=== PATIENT | female | born 1995 | race Caucasian/White ===

== ENCOUNTER 2018-04-03 17:06 | Inpatient (IN) | payer MEDICAID ==
[~2018-04-03] VITALS: Ht 152.4 cm; Wt 45.4 kg
--- NOTE | 2018-04-03 17:30 | NUR ---
PT A/O X 0. OBTUNDED. NEG ACUTE DISTRESS. VSS. PT ON TRACH. NEG SOB. C/C OF TRACH REPLACEMENT. SAFETY MEASURES IN PLACE.
--- NOTE | 2018-04-03 17:50 | NUR ---
CENTRAL SERVICE SUPPLY DISTRIBUTOR YAHAIRA AT BS.
[2018-04-03 17:54] VITALS: BP 139/113
--- NOTE | 2018-04-03 17:57 | NUR ---
RT NOTE RECEIVED PT BEING BAGGED BY PARAMEDICS. PT PLACED ON VENT PER MD ORDER. SETTINGS ENDORSED BY PARAMEDICS AC 14 380 +8. PT INITIALLY PLACED ON 100% WILL TITRATE ACCORDINGLY. PT HAS SHILEY 6 DCT CUFFED TRACHEOSTOMY TUBE. CUFF INFLATED. PT RESPONDS TO STIMULI. LARGE AMOUNT OF FROTHY WHITE SECRETIONS FOUND UPON TRACHEAL SUCTION. ALARMS SET PER PROTOCOL AND AUDIBLE. VENT PLUGGED IN TO RED OUTLET. AMBU BAG AT BED SIDE. NO DISTRESS NOTED AT MOMENT. WILL CONTINUE TO MONITOR. Addendum: 04/03/18 at 1802 by ESPERANZA SHEN RT Amended: Links added.
[2018-04-03] MEDS ORDERED: MINE3.5O26 EACHEYE (18:18)
[2018-04-03] MEDS ORDERED: MONT10TA22 GT (18:18)
[2018-04-03] MEDS ORDERED: ALBU2.5V38 IH (18:18)
[2018-04-03] MEDS ORDERED: LEVE100S GT (18:18)
[2018-04-03] MEDS ORDERED: METO25TA20 GT (18:18)
[2018-04-03] MEDS ORDERED: ACET100V5 NEB (18:18)
[2018-04-03] MEDS ORDERED: NEO/5DRO3 EACHEYE (18:18)
[2018-04-03] MEDS ORDERED: FAMO40TA7 GT (18:18)
[2018-04-03] MEDS ORDERED: CHOL400T11 GT (18:18)
[2018-04-03] MEDS ORDERED: ACID1TAB12 GT (18:18)
[2018-04-03] MEDS ORDERED: NORG1TAB19 GT (18:18)
[2018-04-03] MEDS ORDERED: CHLO473M5 MM (18:18)
[2018-04-03] MEDS ORDERED: PRED20TA GT (18:18)
[2018-04-03] MEDS ORDERED: LORA0.5T SL (18:18)
[2018-04-03] MEDS ORDERED: SODI100010 GT ×2 (18:18)
[2018-04-03] MEDS ORDERED: POLY17PO4 GT (18:18)
[2018-04-03] MEDS ORDERED: PHEN125O3 GT (18:18)
[2018-04-03] MEDS ORDERED: ACET650S26 GT (18:18)
--- NOTE | 2018-04-03 19:26 | NUR ---
PT STABLE CONDITION. ENDORSED TO PLANISHER.
--- NOTE | 2018-04-03 20:07 | NUR ---
SPOKE WITH JOANNA, THE DON AT [facility]. SHES SAID THEY WILL BE READY WITH RT AND VENT AT THE FACILITY AT 1030A TOMORROW TO ACCEPT PATIENT. CALL BACK NUMBER FOR JOANNA IS [phone] ADRESS FOR FACILTY [address], [facility]
[2018-04-03 21:08] VITALS: BP 114/81
--- NOTE | 2018-04-03 21:25 | NUR ---
CALLED [facility] TO TRANSPORT PT TO [facility] TOMORROW MORNING AT 930 AM, TRIP #[id number]
--- NOTE | 2018-04-03 22:03 | NUR ---
PT ASLEEP, NO ACUTE DISTRESS NOTED, RESP EVEN AND UNLABORED. CALL LIGHT WITHIN REACH.
[2018-04-03 23:42] VITALS: BP 117/85
[2018-04-04] VITALS (8 sets, daily range): BP systolic 122–156; BP diastolic 72–102
--- NOTE | 2018-04-04 01:32 | NUR ---
PT ASLEEP, NO ACUTE DISTRESS NOTED, RESP EVEN AND UNLABORED. CALL LIGHT WITHIN REACH.
--- NOTE | 2018-04-04 02:00 | NUR ---
PT ASLEEP, NO ACUTE DISTRESS NOTED, RESP EVEN AND UNLABORED. CALL LIGHT WITHIN REACH.
--- NOTE | 2018-04-04 04:56 | NUR ---
PT ASLEEP, NO ACUTE DISTRESS NOTED, RESP EVEN AND UNLABORED. CALL LIGHT WITHIN REACH.
--- NOTE | 2018-04-04 06:09 | NUR ---
REPORT GIVEN TO YOAN COLLINS.
[2018-04-04] MEDS ORDERED: NUT.237L65 GT (08:19)
--- NOTE | 2018-04-04 08:27 | NUR ---
CALLED LAB AND SPOKE WITH RADHA, PHOTO MASK CLEANER FOR BLOOD DRAW.
[2018-04-04] MEDS ORDERED: IV NS 0.9% 1,000 ML BAG IV ONE (08:30)
--- NOTE | 2018-04-04 08:30 | NUR ---
CHAIR SPRING ASSEMBLER AT BEDSIDE.
[2018-04-04 09:01] LABS: BASOPHILS % (AUTO) 0.1 % (0.0-2.0); EOSINOPHILS % (AUTO) 0.5 % (0.0-6.0); HEMATOCRIT 39 % (33-45); HEMOGLOBIN 13.2 g/dL (11.5-14.8); LYMPHOCYTES # (AUTO) 1.5 /CMM (0.8-4.8); LYMPHOCYTES % (AUTO) 9.5 % (20.0-44.0); MEAN CORPUSCULAR HEMOGLOBIN 29 PG (26.0-33.0); MEAN CORPUSCULAR HGB CONC 34 g/dl (31.0-36.0); MEAN CORPUSCULAR VOLUME 86 fL (82-100); NEUTROPHILS # (AUTO) 13.5 /CMM (1.8-8.9); NEUTROPHILS % (AUTO) 83.9 % (43.0-81.0); PLATELET COUNT (AUTO) 361 /CMM (150-450); RDW COEFFICIENT OF VARIATION 14.1 (11.5-15.0); RED BLOOD CELL COUNT(AUTO) 4.54 MIL/uL (4.0-5.2); WHITE BLOOD COUNT (AUTO) 16.1 K/uL (4.3-11.0)
[2018-04-04 09:10] LABS: CALCIUM, SERUM 9.2 mg/dL (8.5-10.1); CARBON DIOXIDE 20 mmol/L (21-32); CHLORIDE 91 mmol/L (98-107); CREATININE 0.3 mg/dL (0.6-1.3); GLUCOSE 106 mg/dL (74-106); POTASSIUM 3.9 mmol/L (3.5-5.1); SODIUM SERUM 127 mmol/L (136-145); UREA NITROGEN, BLOOD 14 mg/dL (7-18)
[2018-04-04 09:15] LABS: INR 1.05 (0.87-1.13)
[2018-04-04 09:34] LABS: TROPONIN I < 0.017 ng/mL (0.00-0.056)
--- NOTE | 2018-04-04 09:40 | NUR ---
RD ON-CALL FOR TODAY MADE AWARE RE: GT FEEDING CONSULT.
[2018-04-04] MEDS ORDERED: LORAZEPAM INJ 2 MG/ML VIAL ONE (09:55)
[2018-04-04] MEDS ORDERED: LORAZEPAM INJ 2 MG/ML VIAL IV ONE (10:00)
--- NOTE | 2018-04-04 10:34 | NUR ---
REPORT GIVEN TO HENRIETTA FOR OMKAR GOING TO ROOM 103
--- NOTE | 2018-04-04 10:35 | NUR ---
RN NOTES RECEIVED REPORT FROM IONA ESPITIA
--- NOTE | 2018-04-04 10:45 | NUR ---
TELE/RN ADMITTING NOTES RECEIVED PT FROM ER VIA JENNA, ACCOMPANIED BY 2 ER NURSE AND RT. PT WITH TRACH, ONGOING AMBUBAG. PT IS OBTUNDED, NO SIGNS OF PAIN. PLACED ON TELEMONITOR SINUS TACHY @ 120S. WITH INTACT AND PATENT SL ON LFA G#20. WITH DRY AND INTACT TRACH, SHILEY:6. RT PLACED MECH VENT ON THE FF SETTINGS: AC:14; TV:380; FIO2:40% AND PEEP:8. PT TOLERATING VENT SETTINGS WELL. GT CLAMPED AND INTACT. PT'S FATHER AT BEDSIDE. SAFETY MEASURES OBSERVED. ASPIRATION PRECAUTION MAINTAINED. CALL LIGHT WITHIN REACH. WILL CONT TO MONITOR
[2018-04-04] MEDS ORDERED: MAGNESIUM HYDROXIDE 30 ML UDC PO PRN (11:00)
[2018-04-04] MEDS ORDERED: ACETAMINOPHEN 325 MG TABLET PO PRN (11:00)
[2018-04-04] MEDS ORDERED: MAG HYDROX/AL HYDROX/SIMETH 30 ML UDC PO PRN (11:00)
[2018-04-04] MEDS ORDERED: LORAZEPAM 1 MG TABLET PO PRN (11:00)
[2018-04-04] MEDS ORDERED: HYDROCODONE/APAP 5/325MG 1 EACH TABLET PO PRN (11:00)
[2018-04-04] MEDS ORDERED: Z GUARD REMEDY 2 OZ OINT TP PRN (11:00)
[2018-04-04] MEDS ORDERED: ZOLPIDEM TARTRATE 5 MG TABLET PO PRN (11:00)
[2018-04-04] MEDS ORDERED: ONDANSETRON HCL/PF 4 MG/2 ML VIAL IVP PRN (11:00)
--- NOTE | 2018-04-04 11:03 | NUR ---
PT. TRANSFERRED FROM ER TO ROOM 103 WITH SAME MECH VENT. MECH VENT PLUGGED INTO RED OUTLET WITH ALARMS ON AND FUNCTIONING. SAI @ BEDSIDE. Addendum: 04/04/18 at 1106 by JULES TORRES RT Amended: Links added.
[2018-04-04] MEDS: IV NS 0.9% 1,000 ML IV PRN ×2 (13:18→23:46)
--- NOTE | 2018-04-04 14:35 | NUR ---
RN NOTES PICC LINE NURSEOSWALDO ON FLOOR, ASSISTED IN PROCEDURE. STERILE TECHNIQUE OBSERVED. WILL CONT TO MONITOR
--- NOTE | 2018-04-04 16:20 | NUR ---
YOAN NOTES WHILE PROVIDING INCONTINENT CARE WITH PT, PT ON SINUS TACH AROUND 150S ON TELEMONITOR, NOTIFIED DR ELLINGTON AWAITING FOR ORDER Addendum: 04/04/18 at 2049 by KEVIN WALSH RN NOTES FOR 1819
[2018-04-04] MEDS ORDERED: VITAL AF 1.2 1,000 ML BOTTLE GT PRN (16:30)
--- NOTE | 2018-04-04 16:45 | NUR ---
RN NOTES PICC LINE INSERTION UNSUCCESSFUL, PRESSURE DRESSING APPLIED ON PUNCTURE SITE WITH NO SIGNS OF BLEEDING. WILL CONT TO MONITOR
--- NOTE | 2018-04-04 17:20 | NUR ---
RN NOTES PT WAS SEEN AND EXAMINED BY DR ELLINGTON, FATHER AT BEDSIDE. ALL CONCERNS WERE ANSWERED BY MD. NOTIFIED MD RE: THE UNSUCCESSFUL INSERTION OF PICC LINE, PER MD OK TO D/C PICC INSERTION
[2018-04-04] MEDS ORDERED: VITAL AF 1.2 1,000 ML BOTTLE GT SCH (19:00)
[2018-04-04] MEDS ORDERED: LORAZEPAM 0.5 MG TABLET SL PRN (19:00)
[2018-04-04] MEDS ORDERED: LANOLIN/MIN OIL/PETROLAT,WHT 3.5 GM TUBE EACHEYE PRN (19:00)
[2018-04-04] MEDS ORDERED: POLYETHYLENE GLYCOL 3350 17 GM POWD.PACK GT PRN (19:00)
[2018-04-04] MEDS ORDERED: ACETYLCYSTEINE 10% 3,000 MG/30 ML VIAL IH PRN (19:00)
[2018-04-04] MEDS ORDERED: DILTIAZEM HCL 25 MG IV IV PRN (19:00)
[2018-04-04] MEDS ORDERED: ALBUTEROL FS 2.5 MG/0.5 ML VIAL.NEB IH PRN (19:00)
[2018-04-04] MEDS ORDERED: DILTIAZEM HCL CD 240 MG PO SCH (19:00)
[2018-04-04] MEDS ORDERED: ACETAMINOPHEN 650 MG/20.3 ML UDC GT PRN (19:00)
--- NOTE | 2018-04-04 19:00 | NUR ---
RN NOTES DR ELLINGTON MADE NEW ORDER, WILL CONT TO MONITOR PT
--- NOTE | 2018-04-04 19:10 | NUR ---
RN NOTES PT CURRENTLY ON SINUS TACHY 120S, NO SIGNS OF DISTRESS. NO SIGNS OF PAIN. SAFETY MEASURES OBSERVED AT ALL TIMES. ASPIRATION/SEIZURE/PRECAUTION OBSERVED. ALL NEEDS ATTENDED. CALL LIGHT WITHIN REACH. MED RECON IN, ROUTINE CARDIZEM SCHEDULED AT 1900 BUT NEEDS TO CLARIFY ORDER WITH PHARMACY, ENDORSED TO PM SHIFT NURSELASHA FOR CARDIZEM PRN.
--- NOTE | 2018-04-04 19:17 | NUR ---
RELAY TECHNICIAN NOTES RECEIVED PT ON BED. OBTUNDED. ON TELE MONITOR SINUS TACHY 118. ON [facility] VENT SETTING SATURATING WELL. IV ACCESS ON LFA #20 NS @ 100CC/HR PATENT AND INTACT. HEAD OF BED ELEVATED. SIDE RAILS UP. CALL LIGHT WITHIN REACH. BED ALARM ON. WILL CONTINUE TO MONITOR PT CLOSELY.
--- NOTE | 2018-04-04 19:46 | NUR ---
REGIONAL RECRUITER NOTES CALLED [facility]. STILL WAITING FOR THEM TO ANSWER BACK.
[2018-04-04] MEDS ORDERED: DEXTROSE 50%-WATER 50 ML DISP.SYRIN IV PRN (20:00)
--- NOTE | 2018-04-04 20:19 | NUR ---
EXAMINER RATING CLERK NOTES CALLED PHARMACY TO REORDER THE DILTIAZEM SINCE THE PT ON GTUBE AND THE DR ORDERED DILTIAZEM 240MG CAPSULE. EMBOSSING MACHINE TENDER INFORMED ABOUT THE DOSING. STRIPPING SHOVEL OILER ORDERED ACCUCHECK Q6H AND MILD SLIDING SCALE FOR GTUBE PROTOCOL PATIENTS. WILL CONTINUE TO MONITOR PT CLOSELY.
[2018-04-04] MEDS ORDERED: DILTIAZEM HCL 30 MG TABLET PO SCH (21:00)
[2018-04-04] MEDS ORDERED: FAMOTIDINE 40 MG TABLET PO SCH (21:00)
[2018-04-04] MEDS ORDERED: FAMOTIDINE (20 MG) 20 MG TABLET ONE (21:31)
[2018-04-04] MEDS: CHLORHEXIDINE GLUCONATE 15 ML UDC MM SCH (21:39)
[2018-04-04] MEDS: MONTELUKAST SODIUM (10MG) 10 MG TABLET GT SCH (21:41)
[2018-04-05] VITALS: BP 115/79
[2018-04-05 04:00] VITALS: BP 145/91
[2018-04-05] MEDS: BLOOD SUGAR DIAGNOSTIC 1 EACH STRIP IN SCH ×5 (05:24→23:24)
[2018-04-05] MEDS ORDERED: LORAZEPAM 1 MG TABLET GT PRN (07:22)
[2018-04-05] MEDS ORDERED: DILTIAZEM HCL 30 MG TABLET GT SCH ×2 (07:22→09:00)
[2018-04-05] MEDS ORDERED: ZOLPIDEM TARTRATE 5 MG TABLET GT PRN (07:23)
--- NOTE | 2018-04-05 07:28 | NUR ---
MOTORS AND CONTROLS TESTER NOTES NO ACUTE CHANGES NOTED DURING THE SHIFT. PROVIDED COMFORT AND SAFETY. ENDORSED TO THE AM NURSE FOR OMKAR.
--- NOTE | 2018-04-05 07:35 | NUR ---
RN NOTE RECEIVED PATIENT IN BED WITH HOB ELEVATED. PATIENT IS NON VERBAL AND OBTUNDED, BUT IS ABLE TO OPEN EYES WITH TACTILE STIMULI. VENT/TRACH DEPENDENT WITH APPROPRIATE SETTING IN PLACE. ON AFFILIATE MANAGER SINUS TACHY HR OF 117. IV SITE ON LEFT FA INTACT AN PATENT RUNNING NS @ 100CC/HR. HEAD OF BED ELEVATED. BED LOW AND LOCKED POSITION. ALL SAFETY MEASURES DONE. PLACED CALL LIGHT WITHIN REACH. WILL CONTINUE TO MONITOR
[2018-04-05] MEDS ORDERED: MAG HYDROX/AL HYDROX/SIMETH 30 ML UDC GT PRN (07:41)
[2018-04-05] MEDS ORDERED: MAGNESIUM HYDROXIDE 30 ML UDC GT PRN (07:41)
[2018-04-05 08:00] VITALS: BP 153/96
--- NOTE | 2018-04-05 08:02 | NUR ---
RT PATIENT REC'D TRACHED ON [facility] VENT WITH ORDERED SETTINGS MELISSA WELL. VENT ALARMS CHECKED + AUDIBLE. CUFF PRESSURE CHECKED ASSOCIATE PUBLISHER. PATIENT NON RESPONSIVE TO VERBAL COMMANDS, NO SOB NOTED. PATIENT SUCTIONED WITH MOD AMT OF PALE SEMITHICK SECRETIONS. B/S TALISHA. AMBU BAG AT HOB Addendum: 04/05/18 at 0848 by HETAL CASTELAN RT Amended: Links added.
[2018-04-05] MEDS: NEO/POLY-B/DEXAM OPHTH SUSP 5 ML BOTTLE EACHEYE SCH ×3 (08:43→16:20)
[2018-04-05] MEDS: CHLORHEXIDINE GLUCONATE 15 ML UDC MM SCH ×2 (08:44→21:48)
[2018-04-05] MEDS: SODIUM CHLORIDE 1000 MG TABLET.SOL GT SCH ×2 (08:44→16:20)
[2018-04-05] MEDS: LEVETIRACETAM SOL (5 ML) 100 MG/ML UDC GT SCH ×2 (08:45→16:20)
[2018-04-05] MEDS: CHOLECALCIFEROL (VITAMIN D 3) 400 UNIT TABLET GT SCH (08:46)
[2018-04-05] MEDS: ACIDOPHILUS/BULGARICUS 1 EACH TAB.CHEW GT SCH (08:46)
[2018-04-05] MEDS: METOPROLOL TARTRATE 25 MG TABLET GT SCH ×2 (08:46→16:20)
[2018-04-05] MEDS: PHENYTOIN SUSP UDC 100 MG/4 ML UDC GT SCH ×2 (08:47→21:48)
[2018-04-05] MEDS: FAMOTIDINE (20 MG) 20 MG TABLET PO SCH ×2 (08:47→21:49)
[2018-04-05 08:52] LABS: BASOPHILS # (AUTO) 0.1 /CMM (0.0-0.2); BASOPHILS % (AUTO) 0.7 % (0.0-2.0); EOSINOPHILS % (AUTO) 0.4 % (0.0-6.0); HEMATOCRIT 33 % (33-45); HEMOGLOBIN 11.1 g/dL (11.5-14.8); LYMPHOCYTES # (AUTO) 1.4 /CMM (0.8-4.8); LYMPHOCYTES % (AUTO) 10.1 % (20.0-44.0); MEAN CORPUSCULAR HEMOGLOBIN 29 PG (26.0-33.0); MEAN CORPUSCULAR HGB CONC 34 g/dl (31.0-36.0); MEAN CORPUSCULAR VOLUME 87 fL (82-100); MONOCYTES # (AUTO) 0.7 /CMM (0.1-1.30); MONOCYTES % (AUTO) 5.4 % (2.0-12.0); NEUTROPHILS # (AUTO) 11.4 /CMM (1.8-8.9); NEUTROPHILS % (AUTO) 83.4 % (43.0-81.0); PLATELET COUNT (AUTO) 239 /CMM (150-450); RDW COEFFICIENT OF VARIATION 14.4 (11.5-15.0); WHITE BLOOD COUNT (AUTO) 13.6 K/uL (4.3-11.0)
[2018-04-05] MEDS ORDERED: NORGESTIMATE ETHINYL ESTRADIOL GT SCH (09:00)
[2018-04-05 09:05] LABS: CREATININE 0.2 mg/dL (0.6-1.3); MAGNESIUM 1.7 mg/dL (1.8-2.4)
[2018-04-05] MEDS: IV NS 0.9% 1,000 ML IV PRN ×2 (09:55→22:08)
[2018-04-05] MEDS: Magnesium 1GM/D5W 100ML PREMIX 100 ML IV SCH ×2 (10:00→11:07)
[2018-04-05] MEDS: INSULIN REGULAR, HUMAN 100 UNIT/ML 3 ML VIAL SQ PRN (11:33)
[2018-04-05 12:00] VITALS: BP 150/90
[2018-04-05 16:00] VITALS: BP 141/90
[2018-04-05 16:32] LABS: APPEARANCE,URINE CLEAR (CLEAR); BILIRUBIN,URINE NEGATIVE (NEGATIVE); BLOOD, URINE NEGATIVE Ery/uL (NEGATIVE); COLOR,URINE YELLOW (YELLOW); KETONES,URINE TRACE (NEGATIVE); LEUKOCYTE ESTERASE ,URINE TRACE (NEGATIVE); NITRITE, URINE NEGATIVE (NEGATIVE); PROTEIN,URINE NEGATIVE (NEGATIVE); UGLUCOSE NEGATIVE (NEGATIVE); UROBILINOGEN,URINE 0.2 EU/dL (0.2)
[2018-04-05 16:50] LABS: BACTERIA,URINE Many /HPF (None Seen); RBC,URINE NONE SEEN /HPF (0-2); SQUAMOUS EPITHELIAL CELL,UR Many /HPF (None Seen); YEAST,URINE Few /HPF (None Seen)
--- NOTE | 2018-04-05 18:48 | NUR ---
RN NOTE PATIENT REMAINED STABLE THROUGHOUT SHIFT. NO ACUTE CHANGES OR DISTRESS NOTED. WILL ENDORSE TO NEXT SHIFT TO CONTINUE TO MONITOR CONTINUITY OF CARE.
[2018-04-05 20:00] VITALS: BP 129/82
[2018-04-05] MEDS: MONTELUKAST SODIUM (10MG) 10 MG TABLET GT SCH (21:49)
[2018-04-06] VITALS (7 sets, daily range): BP systolic 114–148; BP diastolic 67–87
--- NOTE | 2018-04-06 03:10 | NUR ---
RN INITIAL NOTES RECEIVED PT ON BED. OBTUNDED. ON TELE MONITOR SR 85. ON [facility] VENT SETTING SATURATING WELL. IV ACCESS ON LFA #20 NS @ 100CC/HR PATENT AND INTACT. TUBE FEEDING INFUSING. HEAD OF BED ELEVATED. SIDE RAILS UP. CALL LIGHT WITHIN REACH. BED ALARM ON. WILL CONTINUE TO MONITOR PT CLOSELY.
[2018-04-06] MEDS: BLOOD SUGAR DIAGNOSTIC 1 EACH STRIP IN SCH ×4 (05:47→23:20)
--- NOTE | 2018-04-06 06:36 | NUR ---
RN CLOSING NOTE PATIENT REMAINED STABLE THROUGHOUT SHIFT. NO ACUTE CHANGES OR DISTRESS NOTED. WILL ENDORSE TO NEXT SHIFT FOR CONTINUITY OF CARE.
[2018-04-06 07:01] LABS: BASOPHILS % (AUTO) 0.2 % (0.0-2.0); EOSINOPHILS % (AUTO) 0.5 % (0.0-6.0); HEMATOCRIT 33 % (33-45); HEMOGLOBIN 11.2 g/dL (11.5-14.8); LYMPHOCYTES # (AUTO) 1.3 /CMM (0.8-4.8); MEAN CORPUSCULAR HEMOGLOBIN 29 PG (26.0-33.0); MEAN CORPUSCULAR HGB CONC 34 g/dl (31.0-36.0); MEAN CORPUSCULAR VOLUME 87 fL (82-100); MONOCYTES % (AUTO) 3.8 % (2.0-12.0); NEUTROPHILS # (AUTO) 23.3 /CMM (1.8-8.9); NEUTROPHILS % (AUTO) 90.5 % (43.0-81.0); PLATELET COUNT (AUTO) 198 /CMM (150-450); RDW COEFFICIENT OF VARIATION 14.5 (11.5-15.0); RED BLOOD CELL COUNT(AUTO) 3.81 MIL/uL (4.0-5.2); WHITE BLOOD COUNT (AUTO) 25.8 K/uL (4.3-11.0)
[2018-04-06 07:13] LABS: CALCIUM, SERUM 8.7 mg/dL (8.5-10.1); CREATININE 0.3 mg/dL (0.6-1.3); MAGNESIUM 1.6 mg/dL (1.8-2.4); PHOSPHORUS 2.5 mg/dL (2.5-4.9); POTASSIUM 3.8 mmol/L (3.5-5.1)
--- NOTE | 2018-04-06 07:35 | NUR ---
RN NOTE RECEIVED PATIENT IN BED WITH HOB ELEVATED. PATIENT IS NON VERBAL AND OBTUNDED, BUT IS ABLE TO OPEN EYES WITH TACTILE STIMULI. VENT/TRACH DEPENDENT WITH APPROPRIATE SETTING IN PLACE. ON CHANGE MANAGEMENT CONSULTANT SINUS TACHY HR OF 105. IV SITE ON LEFT FA INTACT AN PATENT RUNNING NS @ 100CC/HR. GT SITE INTACT AND PATENT WITH ON GOING FEEDINGS WELL TOLERATED WITH NO RESIDUALS NOTED. BED LOW AND LOCKED POSITION. ALL SAFETY MEASURES DONE. PLACED CALL LIGHT WITHIN REACH. WILL CONTINUE TO MONITOR
--- NOTE | 2018-04-06 07:45 | NUR ---
RT PATIENT REC'D TRACHED ON [facility] VENT WITH ORDERED SETTINGS MELISSA WELL. VENT ALARMS CHECKED + AUDIBLE. CUFF PRESSURE CHECKED CARPENTRY SUPERVISOR. PATIENT NON RESPONSIVE TO VERBAL COMMANDS, NO SOB NOTED. PATIENT SUCTIONED WITH MOD AMT OF PALE SEMITHICK SECRETIONS. B/S TALISHA. AMBU BAG AT HOB Addendum: 04/06/18 at 1544 by HETAL CASTELAN RT Amended: Links added.
[2018-04-06 08:11] LABS: BAND % (MANUAL) 4 % (0.0-5.0); LYMPHOCYTES % (MANUAL) 7 % (16-48); MONOCYTES % (MANUAL) 4 % (0-11.0); NEUTROPHILS % (MANUAL) 85 (42-76)
[2018-04-06] MEDS: predniSONE 20 MG TABLET GT SCH (08:43)
[2018-04-06] MEDS: FAMOTIDINE (20 MG) 20 MG TABLET PO SCH ×2 (08:43→21:02)
[2018-04-06] MEDS: ACIDOPHILUS/BULGARICUS 1 EACH TAB.CHEW GT SCH (08:43)
[2018-04-06] MEDS: CHOLECALCIFEROL (VITAMIN D 3) 400 UNIT TABLET GT SCH (08:43)
[2018-04-06] MEDS: SODIUM CHLORIDE 1000 MG TABLET.SOL GT SCH ×2 (08:43→17:21)
[2018-04-06] MEDS: METOPROLOL TARTRATE 25 MG TABLET GT SCH ×2 (08:44→17:22)
[2018-04-06] MEDS: CHLORHEXIDINE GLUCONATE 15 ML UDC MM SCH ×2 (08:44→21:02)
[2018-04-06] MEDS: NEO/POLY-B/DEXAM OPHTH SUSP 5 ML BOTTLE EACHEYE SCH ×3 (08:44→17:22)
[2018-04-06] MEDS: PHENYTOIN SUSP UDC 100 MG/4 ML UDC GT SCH ×2 (08:44→21:02)
[2018-04-06] MEDS: LEVETIRACETAM SOL (5 ML) 100 MG/ML UDC GT SCH ×2 (08:44→17:21)
[2018-04-06] MEDS ORDERED: AZTREONAM 1 G VIAL IM SCH (10:30)
[2018-04-06] MEDS ORDERED: FEE PK DOSING 1 MIN EA MC ONE (10:46)
--- NOTE | 2018-04-06 10:50 | NUR ---
RN NOTE PHYSICAL SECURITY SPECIALIST JOSÉ LUIS RECOMMEND TO INCREASE TUBE FEEDING TO 50ML/HR GOAL RATE IS 55ML/HR. INCREASE TUBE FEEDING TOMORROW TO 55ML/HR TO REACH GOAL. FAMILY AND MD MADE AWARE.
[2018-04-06] MEDS: Magnesium 1GM/D5W 100ML PREMIX 100 ML IV SCH ×2 (11:17→12:56)
[2018-04-06] MEDS: INSULIN REGULAR, HUMAN 100 UNIT/ML 3 ML VIAL SQ PRN (12:01)
[2018-04-06] MEDS: AZTREONAM 1 G in IV NS 0.9% 100 ML IV SCH ×2 (12:18→19:25)
[2018-04-06] MEDS: VANCOMYCIN 0.75 GM in IV D5W 250 ML IV SCH ×2 (13:28→20:59)
--- NOTE | 2018-04-06 19:04 | NUR ---
RN NOTE PATIENT REMAINED STABLE THROUGHOUT SHIFT. NO ACUTE CHANGES OR DISTRESS NOTED. WILL ENDORSE TO NEXT SHIFT TO CONTINUE TO MONITOR CONTINUITY OF CARE.
--- NOTE | 2018-04-06 19:30 | NUR ---
RN OPENING NOTES: RECEIVED PATIENT ON BED, SPONTANEOUSLY OPENS EYES BUT DOES NOT TRACT, UNABLE TO FOLLOW COMMANDS. ON TRACH TO [facility] VENT WITH SETTINGS ORDERED. SR ON THE MONITOR HR AT 80'S BPM. MONITORED FOR NON VERBAL PAIN CUES. IV ACCESS ON LEFT FOREARM. FLACCID EXTREMITIES. GT INTACT, FEEDING ONGOING ORDERED. NO RESIDUALS NOTED, MONITORED. SAFETY MEASURES ENSURED AT ALL TIMES. CONTINUOUSLY MONITORED.
[2018-04-06] MEDS: MONTELUKAST SODIUM (10MG) 10 MG TABLET GT SCH (21:02)
[2018-04-06] MEDS: IV NS 0.9% 1,000 ML IV PRN (23:20)
[2018-04-07] VITALS: BP 139/82
[2018-04-07] MEDS: AZTREONAM 1 G in IV NS 0.9% 100 ML IV SCH ×3 (03:20→18:44)
[2018-04-07 04:00] VITALS: BP 129/82
[2018-04-07] MEDS: VANCOMYCIN 0.75 GM in IV D5W 250 ML IV SCH ×2 (04:45→12:04)
[2018-04-07] MEDS: VITAL AF 1.2 1,000 ML BOTTLE GT PRN (04:48)
[2018-04-07] MEDS: BLOOD SUGAR DIAGNOSTIC 1 EACH STRIP IN SCH ×4 (05:38→23:24)
[2018-04-07] MEDS: INSULIN REGULAR, HUMAN 100 UNIT/ML 3 ML VIAL SQ PRN ×3 (05:38→23:24)
--- NOTE | 2018-04-07 06:46 | NUR ---
RN CLOSING NOTES: PATIENT REMAINED NOT IN APPARENT DISTRESS, REMAINED TRACH TO MECH VENT. OCCASIONAL TACHYCARDIA OCCURRED, DID NOT SUSTAIN. RE INSERTED NEW IV ACCESS ON RIGHT AC PREVIOUS ACCESS WAS LEAKING. SKIN CARE AND TRACH CARE RENDERED SAFETY MEASURES AND ASPIRATION PRECAUTIONS ENSURED. AM LABS DRAWN, RESULTS PENDING. CONTINUOUSLY MONITORED. TO ENDORSE TO AM SHIFT RN.
[2018-04-07 07:14] LABS: CALCIUM, SERUM 8.6 mg/dL (8.5-10.1); CREATININE 0.3 mg/dL (0.6-1.3); MAGNESIUM 1.7 mg/dL (1.8-2.4); POTASSIUM 3.6 mmol/L (3.5-5.1)
[2018-04-07 08:00] VITALS: BP_SYST 110; BP_SYST 149; BP_DIAS 104; BP_DIAS 75
--- NOTE | 2018-04-07 08:00 | NUR ---
TELE1/RN AM SHIFT INITIAL NOTES RECEIVED PT AWAKE, PT IS OBTUNDED, OPEN EYES, NO ACUTE DISTRESS, GRIMACING OR CHANGE OF CONDITION NOTED. VENT DEPENDENT WITH RATES SET PRESCRIBED, SATURATING @ 98%, LUNG SOUNDS DIMINISHED, SUCTIONED FOR AIRWAY CLEARANCE, RESPIRATIONS EVEN AND UNLABORED. ON TELE MONITORING, SINUS TACHY, 107. WITH ON GOING IVF OF NS @ 100CC/HR, IV SITE PATENT WITH NO S/S OF INFECTION. GTF @ 50CC/HR, NO GASTRIC RESIDUAL NOTED, FLUSHED, PATENT. PT IS COMFORTABLE AT THIS TIME, SCHEDULED AM MEDS TO BE GIVEN. CL WITHIN REACHED AND SAFETY MAINTAINED. ON GOING MONITORING.
[2018-04-07] MEDS: ACIDOPHILUS/BULGARICUS 1 EACH TAB.CHEW GT SCH (08:44)
[2018-04-07] MEDS: CHLORHEXIDINE GLUCONATE 15 ML UDC MM SCH ×2 (08:44→20:52)
[2018-04-07] MEDS: NEO/POLY-B/DEXAM OPHTH SUSP 5 ML BOTTLE EACHEYE SCH ×3 (08:44→17:07)
[2018-04-07] MEDS: LEVETIRACETAM SOL (5 ML) 100 MG/ML UDC GT SCH ×2 (08:45→17:08)
[2018-04-07] MEDS: CHOLECALCIFEROL (VITAMIN D 3) 400 UNIT TABLET GT SCH (08:45)
[2018-04-07] MEDS: METOPROLOL TARTRATE 25 MG TABLET GT SCH ×2 (08:46→17:08)
[2018-04-07] MEDS: PHENYTOIN SUSP UDC 100 MG/4 ML UDC GT SCH ×2 (08:46→20:52)
[2018-04-07] MEDS: SODIUM CHLORIDE 1000 MG TABLET.SOL GT SCH ×2 (08:46→17:07)
[2018-04-07] MEDS: predniSONE 20 MG TABLET GT SCH (08:46)
[2018-04-07] MEDS: FAMOTIDINE (20 MG) 20 MG TABLET PO SCH ×2 (08:48→20:52)
[2018-04-07 12:00] VITALS: BP 113/75
--- NOTE | 2018-04-07 12:00 | NUR ---
TELE1/RN NOON ROUNDS NO CHANGE OF CONDITION. MONITORING CONTINUED.
[2018-04-07] MEDS: Magnesium 1GM/D5W 100ML PREMIX 100 ML IV SCH ×2 (13:47→14:43)
[2018-04-07 16:00] VITALS: BP 121/92
[2018-04-07] MEDS: IV NS 0.9% 1,000 ML IV PRN (17:09)
--- NOTE | 2018-04-07 19:26 | NUR ---
TELE1/RN AM SHIFT END NOTES ALL NEEDS MET. NO ACUTE CHANGE OF CONDITION NOTED DURING THE SHIFT. PT ENDORSED TO PM NURSE TO CONTINUE CARE. CL WITHIN REACHED AND SAFETY MAINTAINED.
[2018-04-07 20:00] VITALS: BP 121/77
[2018-04-07] MEDS: VANCOMYCIN 1 GM in IV D5W 250 ML IV SCH (20:52)
[2018-04-07] MEDS: MONTELUKAST SODIUM (10MG) 10 MG TABLET GT SCH (21:31)
[2018-04-08] VITALS: BP 99/58
[2018-04-08] MEDS: AZTREONAM 1 G in IV NS 0.9% 100 ML IV SCH ×3 (02:58→20:19)
[2018-04-08 04:00] VITALS: BP 120/73
[2018-04-08] MEDS: VANCOMYCIN 1 GM in IV D5W 250 ML IV SCH ×3 (04:23→21:20)
[2018-04-08] MEDS: IV NS 0.9% 1,000 ML IV PRN ×2 (04:24→18:16)
[2018-04-08] MEDS: BLOOD SUGAR DIAGNOSTIC 1 EACH STRIP IN SCH ×4 (05:17→23:23)
[2018-04-08] MEDS: INSULIN REGULAR, HUMAN 100 UNIT/ML 3 ML VIAL SQ PRN ×3 (05:19→23:23)
[2018-04-08] MEDS: VITAL AF 1.2 1,000 ML BOTTLE GT PRN (05:20)
[2018-04-08 06:45] LABS: CALCIUM, SERUM 8.4 mg/dL (8.5-10.1); CREATININE 0.3 mg/dL (0.6-1.3); MAGNESIUM 1.8 mg/dL (1.8-2.4); PHOSPHORUS 2.5 mg/dL (2.5-4.9); POTASSIUM 4.5 mmol/L (3.5-5.1)
[2018-04-08 06:47] LABS: BASOPHILS % (AUTO) 0.4 % (0.0-2.0); EOSINOPHILS % (AUTO) 2.3 % (0.0-6.0); HEMATOCRIT 31 % (33-45); HEMOGLOBIN 10.3 g/dL (11.5-14.8); LYMPHOCYTES # (AUTO) 2.4 /CMM (0.8-4.8); MEAN CORPUSCULAR HEMOGLOBIN 29 PG (26.0-33.0); MEAN CORPUSCULAR HGB CONC 33 g/dl (31.0-36.0); MEAN CORPUSCULAR VOLUME 89 fL (82-100); MONOCYTES # (AUTO) 0.8 /CMM (0.1-1.30); NEUTROPHILS # (AUTO) 9.1 /CMM (1.8-8.9); NEUTROPHILS % (AUTO) 72.3 % (43.0-81.0); PLATELET COUNT (AUTO) 297 /CMM (150-450); RDW COEFFICIENT OF VARIATION 14.6 (11.5-15.0); RED BLOOD CELL COUNT(AUTO) 3.51 MIL/uL (4.0-5.2); WHITE BLOOD COUNT (AUTO) 12.6 K/uL (4.3-11.0)
[2018-04-08 08:00] VITALS: BP 146/92
[2018-04-08] MEDS: predniSONE 20 MG TABLET GT SCH (08:37)
[2018-04-08] MEDS: CHOLECALCIFEROL (VITAMIN D 3) 400 UNIT TABLET GT SCH (08:37)
[2018-04-08] MEDS: FAMOTIDINE (20 MG) 20 MG TABLET PO SCH ×2 (08:37→20:19)
[2018-04-08] MEDS: CHLORHEXIDINE GLUCONATE 15 ML UDC MM SCH ×2 (08:37→20:19)
[2018-04-08] MEDS: ACIDOPHILUS/BULGARICUS 1 EACH TAB.CHEW GT SCH (08:37)
[2018-04-08] MEDS: LEVETIRACETAM SOL (5 ML) 100 MG/ML UDC GT SCH ×2 (08:37→17:13)
[2018-04-08] MEDS: PHENYTOIN SUSP UDC 100 MG/4 ML UDC GT SCH ×2 (08:37→20:19)
[2018-04-08] MEDS: NEO/POLY-B/DEXAM OPHTH SUSP 5 ML BOTTLE EACHEYE SCH ×3 (08:38→17:13)
[2018-04-08] MEDS: SODIUM CHLORIDE 1000 MG TABLET.SOL GT SCH ×2 (08:38→17:13)
[2018-04-08] MEDS: METOPROLOL TARTRATE 25 MG TABLET GT SCH ×2 (08:38→17:14)
[2018-04-08 12:00] VITALS: BP 128/79
[2018-04-08 16:00] VITALS: BP 118/76
[2018-04-08 20:00] VITALS: BP 121/80
[2018-04-08] MEDS: MONTELUKAST SODIUM (10MG) 10 MG TABLET GT SCH (21:13)
[2018-04-09] VITALS: BP 103/61
[2018-04-09 03:36] LABS: BASOPHILS # (AUTO) 0.1 /CMM (0.0-0.2); BASOPHILS % (AUTO) 0.4 % (0.0-2.0); EOSINOPHILS % (AUTO) 1.8 % (0.0-6.0); HEMATOCRIT 29 % (33-45); HEMOGLOBIN 9.9 g/dL (11.5-14.8); LYMPHOCYTES % (AUTO) 17.6 % (20.0-44.0); MEAN CORPUSCULAR HEMOGLOBIN 30 PG (26.0-33.0); MEAN CORPUSCULAR HGB CONC 34 g/dl (31.0-36.0); MEAN CORPUSCULAR VOLUME 87 fL (82-100); MONOCYTES # (AUTO) 0.8 /CMM (0.1-1.30); MONOCYTES % (AUTO) 6.5 % (2.0-12.0); NEUTROPHILS # (AUTO) 8.5 /CMM (1.8-8.9); NEUTROPHILS % (AUTO) 73.7 % (43.0-81.0); PLATELET COUNT (AUTO) 346 /CMM (150-450); RDW COEFFICIENT OF VARIATION 14.5 (11.5-15.0); RED BLOOD CELL COUNT(AUTO) 3.34 MIL/uL (4.0-5.2); WHITE BLOOD COUNT (AUTO) 11.6 K/uL (4.3-11.0)
[2018-04-09] MEDS: AZTREONAM 1 G in IV NS 0.9% 100 ML IV SCH ×2 (03:38→11:05)
[2018-04-09 03:44] LABS: CALCIUM, SERUM 8.5 mg/dL (8.5-10.1); CREATININE 0.3 mg/dL (0.6-1.3); POTASSIUM 3.8 mmol/L (3.5-5.1)
[2018-04-09 04:00] VITALS: BP 114/72
[2018-04-09] MEDS: VANCOMYCIN 1 GM in IV D5W 250 ML IV SCH ×2 (04:42→12:00)
[2018-04-09] MEDS: VITAL AF 1.2 1,000 ML BOTTLE GT PRN (04:42)
[2018-04-09] MEDS: BLOOD SUGAR DIAGNOSTIC 1 EACH STRIP IN SCH ×2 (05:31→12:01)
[2018-04-09] MEDS: INSULIN REGULAR, HUMAN 100 UNIT/ML 3 ML VIAL SQ PRN (05:31)
--- NOTE | 2018-04-09 07:30 | NUR ---
SENIOR QUALITATIVE RESEARCHER NOTES: RECEIVED PT ON BED, OBTUNDED. NO ACUTE DISTRESS NOTED. NO FACIAL GRIMACING OR ANY SIGNS OF PAIN AT THIS TIME. BREATHING EVEN AND UNLABORED WITH NORMAL RESPIRATIONS. ON TELE MONITOR, SINUS RHYTHM HR 97. IV ON RIGHT AC G22 INTACT AND PATENT WITH IV NS RUNNING AT 00ML/HR. ON GT FEEDING, NO RESIDUAL AT THIS TIME, TOLERATING WELL. TURNED AND REPOSITIONED Q2HRS. KEPT CLEAN, DRY AND COMFORTABLE. SAFETY AND FALL PRECAUTIONS OBSERVED AND MAINTAINED. [place] CONTINUE TO MONITOR PT. Addendum: 04/09/18 at 1045 by RAGHU KULKARNI RN IV ON LEFT AC G22 INTACT AND PATENT WITH IV NS RUNNING AT 100ML/HR.
[2018-04-09 08:00] VITALS: BP 126/71
[2018-04-09] MEDS: SODIUM CHLORIDE 1000 MG TABLET.SOL GT SCH (08:33)
[2018-04-09] MEDS: CHOLECALCIFEROL (VITAMIN D 3) 400 UNIT TABLET GT SCH (08:33)
[2018-04-09] MEDS: FAMOTIDINE (20 MG) 20 MG TABLET PO SCH (08:33)
[2018-04-09] MEDS: PHENYTOIN SUSP UDC 100 MG/4 ML UDC GT SCH (08:34)
[2018-04-09] MEDS: LEVETIRACETAM SOL (5 ML) 100 MG/ML UDC GT SCH (08:34)
[2018-04-09] MEDS: predniSONE 20 MG TABLET GT SCH (08:34)
[2018-04-09] MEDS: CHLORHEXIDINE GLUCONATE 15 ML UDC MM SCH (08:34)
[2018-04-09] MEDS: METOPROLOL TARTRATE 25 MG TABLET GT SCH (08:34)
[2018-04-09] MEDS: ACIDOPHILUS/BULGARICUS 1 EACH TAB.CHEW GT SCH (08:35)
[2018-04-09] MEDS: NEO/POLY-B/DEXAM OPHTH SUSP 5 ML BOTTLE EACHEYE SCH ×2 (08:35→12:29)
[2018-04-09] MEDS: IV NS 0.9% 1,000 ML IV PRN (08:50)
--- NOTE | 2018-04-09 11:05 | NUR ---
CORRECTION OFFICER NOTES: AZACTAM 1G DUE AT 1130 WAS NOT GIVEN BECAUSE IV LINE WAS INFILTRATED. PT WILL BE DISCHARGED AT 1300. PHARMACY AND CHARGE NURSE AWARE. WILL NOTIFY MD AND RECOMMEND TO CHANGE IT TO GT.
--- NOTE | 2018-04-09 11:13 | NUR ---
PROCESS DESCRIPTION WRITER NOTES: REPORT GIVEN TO [facility], SPOKE WITH YOAN GREEN.
--- NOTE | 2018-04-09 11:17 | NUR ---
ENVIRONMENTAL ENGINEERING MANAGER NOTES: NOTIFIED DR. MONROY REGARDING PATIENT'S DUE IV ATB, PER , OK NOT TO GIVE AT THIS TIME. IV ATB WILL BE CHANGED TO GTUBE ATB.
[2018-04-09 12:00] VITALS: BP 117/58
[2018-04-09] MEDS ORDERED: LEVO750T21 PO (12:13)
--- NOTE | 2018-04-09 12:20 | NUR ---
ENTRY LEVEL ACCOUNTANT NOTES: DUE IV MEDICATION VANCOMYCIN NOT GIVEN BECAUSE PT HAS NO IV LINE. PT WILL BE DISCHARGED AT 1300. DR. MONROY AND CHARGE NURSE AWARE, PER DR. MONROY, HE WILL CHANGE THE MEDICATION TO GTUBE.
--- NOTE | 2018-04-09 12:56 | NUR ---
ORTHOPAEDIC NURSE NOTES: CALLED FAMILY MEMBER (MOTHER) AND INFORMED REGARDING PT DISCHARGE TO FACILITY.
--- NOTE | 2018-04-09 13:13 | NUR ---
JACQUARD LOOM HEDDLES TIER NOTES: PT WAS DISCHARGED AND PICKED UP BY AMBULANCE, REPORT GIVEN. PT IS ON STABLE CONDITION. HEPLOCK AND TELE MONITOR REMOVED. LEFT ARM SLIGHTLY SWOLLEN. GT INTACT AND CLUMPED. ON MECH VENT, NO SOB NOTED.
== END 2018-04-09 14:20 | DRG 720 ==
LOC: ER 17:09 → TELE1 04-04 10:36
PROVIDERS: ADMIT Internal Medicine; ATTEND Internal Medicine
PROC: 02HV33Z Insertion of Infusion Device into Superior Vena Cava, Percutaneous Approach (ICD-10-PCS; principal; 2018-04-04)
PROC: 5A1955Z Respiratory Ventilation, Greater than 96 Consecutive Hours (ICD-10-PCS; principal; 2018-04-04)
PROC: B548ZZA Ultrasonography of Superior Vena Cava, Guidance (ICD-10-PCS; principal; 2018-04-04)
DX: A41.9 Sepsis, unspecified organism (principal); J96.21 Acute and chronic respiratory failure with hypoxia; G93.41 Metabolic encephalopathy; Z99.11 Dependence on respirator [ventilator] status; J15.9 Unspecified bacterial pneumonia; J15.6 Pneumonia due to other Gram-negative bacteria; Z93.0 Tracheostomy status; E87.1 Hypo-osmolality and hyponatremia; E86.0 Dehydration; G80.9 Cerebral palsy, unspecified; G40.909 Epilepsy, unspecified, not intractable, without status epilepticus; Z93.1 Gastrostomy status; R13.10 Dysphagia, unspecified; Z88.1 Allergy status to other antibiotic agents; Z88.0 Allergy status to penicillin; Z79.899 Other long term (current) drug therapy; L98.9 Disorder of the skin and subcutaneous tissue, unspecified; E83.42 Hypomagnesemia; D64.9 Anemia, unspecified; I10 Essential (primary) hypertension; F41.9 Anxiety disorder, unspecified; K21.9 Gastro-esophageal reflux disease without esophagitis; N39.0 Urinary tract infection, site not specified; E86.1 Hypovolemia; B96.1 Klebsiella pneumoniae [K. pneumoniae] as the cause of diseases classified elsewhere
CPT/HCPCS: 31720; 36415; 36569; 71045-TC; 80048-TC; 80185-TC; 80202-TC; 81000-TC; 82962-TC; 83735-TC; 84100-TC; 84484-TC; 84703-TC; 85025-TC; 85730-TC; 87040-TC; 87081-TC; 87086-TC; 87186-TC; 94002-TC; 94003-TC; 94762-TC; A4606; A4623; A6402; A7526; C1751; J1815; J1953; J2060; J3370; J3475; J3490; J7030; J7060; Z7610

== ENCOUNTER 2021-06-20 11:28 | Emergency (ER) | payer MEDICAID ==
[~2021-06-20] VITALS: Ht 152.4 cm; Wt 49.9 kg
[~2021-06-20 11:28] MED LIST: ACET100V5 NEB; ACET650S26 GT; ACID1TAB12 GT; ALBU2.5V38 IH; CHLO473M5 MM; CHOL400T11 GT; FAMO40TA7 GT; LEVE100S GT; LEVO750T21 PO; LORA0.5T SL; METO25TA20 GT; MINE3.5O26 EACHEYE; MONT10TA22 GT; NEO/5DRO3 EACHEYE; NORG1TAB19 GT; NUT.237L65 GT; PHEN125O3 GT; POLY17PO4 GT
--- NOTE | 2021-06-20 11:50 | NUR ---
THE PATIENT IS BIBPA FOR TRACH CHANGES. THE PATIENT IS TRAC/VENT DEPENDENT. GT PRESENT, MYERS CATH PRESENT AND DRAINING CLEAR, YELLOW COLOR URINE. ATTACHED TO THE MONITOR.
[2021-06-20] MEDS ORDERED: NUT.237L30 GT (12:13)
[2021-06-20] MEDS ORDERED: ALBU8.5H8 IH ×2 (12:13)
[2021-06-20] MEDS ORDERED: ERYT3.5O9 EACHEYE (12:13)
[2021-06-20] MEDS ORDERED: INSU100V27 SQ (12:13)
[2021-06-20] MEDS ORDERED: HYDR-4303 GT (12:13)
[2021-06-20] MEDS ORDERED: LORA2VIA6 IM (12:13)
[2021-06-20] MEDS ORDERED: DOCU-141 GT (12:13)
[2021-06-20] MEDS ORDERED: PHEN125O9 GT (12:13)
[2021-06-20] MEDS ORDERED: MULT-447 GT (12:13)
[2021-06-20] MEDS ORDERED: CITR15SO GT (12:13)
[2021-06-20] MEDS ORDERED: TRAM50TA2 GT (12:13)
[2021-06-20] MEDS ORDERED: ASCO-352 GT (12:13)
[2021-06-20] MEDS ORDERED: POLY15DR40 EACHEYE (12:13)
[2021-06-20] MEDS ORDERED: HEPA50007 SQ (12:13)
[2021-06-20] MEDS ORDERED: BISA10SU11 RC (12:13)
[2021-06-20] MEDS ORDERED: INSU100V7 SQ (12:13)
--- NOTE | 2021-06-20 12:23 | NUR ---
CALLED [facility] FOR TRANSPORT TO [facility]. ETA 1 HOUR.
--- NOTE | 2021-06-20 13:36 | NUR ---
The patient is discharged from ER in stable condition. Left ER via arranged transpo.
[2021-06-20 13:37] VITALS: BP 107/73
== END 2021-06-20 13:37 ==
LOC: ER 11:35
DX: Z43.0 Encounter for attention to tracheostomy (principal); I10 Essential (primary) hypertension; Z98.890 Other specified postprocedural states; Z88.0 Allergy status to penicillin; Z88.1 Allergy status to other antibiotic agents; Z79.899 Other long term (current) drug therapy